=== PATIENT | female | born 1985 | race Native Hawaiian/Other Pacific Islander ===

== ENCOUNTER → 2020-11-04 08:08 | Outpatient (CLI) | payer OTHER, MEDICAID, SELFPAY ==
--- NOTE | 2020-11-04 08:09 | DI.US.S_ITS ---
PROCEDURE: US PELVIC COMPLETE INDICATIONS: intermittent L pelvic pain x years/verify IUD position TECHNIQUE: Real-time scanning was performed of the pelvic organs, with image documentation. Additional endovaginal scanning was necessary due to incomplete visualization of the adnexal and endometrial structures by transabdominal scanning. COMPARISON: None. FINDINGS: Uterus: Uterus is normal in size at 7.9 x 5.6 x 3.8 cm. The endometrium measures 2 mm in combined thickness. An IUD is seen at its expected location. Note is made of generalized increased vascularity of the uterus. Ovaries: The right ovary measures 3.5 x 2.5 x 2 cm. The left ovary measures 3 x 2.2 x 1.2 cm. The ovaries have a normal sonographic appearance. On the left, there is a complex lesion seen with heterogeneous debris with vascular nodules. That measures 4.1 x 3.1 x 2.1 cm. Other: A mild amount of free pelvic fluid is seen, which is likely within physiologic limits. IMPRESSION: The IUD is seen at its expected location. Complex lesion with vascular nodule seen involving the left adnexal region. Ectopic is possible in this patient with an IUD, yet considered to be less likely. Please correlate with beta HCG, if clinically appropriate. At clinical discretion, a followup pelvic ultrasound could be considered in 6 weeks to assure resolution/ improvement. Dictated by: Driss Garcia M.D. on 11/04/2020 at 9:23 Approved by: Driss Garcia M.D. on 11/04/2020 at 9:26
== END ==
PROVIDERS: PCP Registered Nurse Diabetes Educator; Referring Provider Registered Nurse Diabetes Educator; Visit Provider Registered Nurse Diabetes Educator
DX: R10.2 Pelvic and perineal pain (principal); T83.32XA Displacement of intrauterine contraceptive device, initial encounter; N94.89 Other specified conditions associated with female genital organs and menstrual cycle
CPT/HCPCS: 76830; 76856

== ENCOUNTER → 2020-11-05 14:45 | Outpatient (CLI) | payer OTHER, MEDICAID, SELFPAY ==
[2020-11-05 15:52] LABS: HCG Quantitative /Beta subunit < 2.4 mIU/mL
== END ==
PROVIDERS: PCP Registered Nurse Diabetes Educator; Referring Provider Registered Nurse Diabetes Educator; Visit Provider Registered Nurse Diabetes Educator
DX: R93.89 Abnormal findings on diagnostic imaging of other specified body structures (principal)
CPT/HCPCS: 36415; 84702

== ENCOUNTER → 2020-11-15 15:10 | Outpatient (CLI) | payer OTHER, MEDICAID, SELFPAY ==
[2020-11-15 17:36] LABS: Carcinoembryonic Antigen 5.1 ng/mL (0.1-3.0)
[2020-11-15 17:43] LABS: Cancer Antigen 125 < 5.5 U/mL (0-35)
[2020-11-16 05:42] LABS: Cancer (Carbohydrate) Ag 19-9 4 U/mL (0-35)
[2020-11-18 12:10] LABS: Human Epididymis Prot 4 47.9 pmol/L (0.0-61.2)
== END ==
PROVIDERS: PCP Registered Nurse Diabetes Educator; Referring Provider Obstetrics & Gynecology; Visit Provider Obstetrics & Gynecology
DX: N83.8 Other noninflammatory disorders of ovary, fallopian tube and broad ligament (principal)
CPT/HCPCS: 36415; 82378; 86301; 86304; 86305

== ENCOUNTER → 2020-11-29 09:15 | Outpatient (CLI) | payer OTHER, MEDICAID, SELFPAY ==
--- NOTE | 2020-11-29 10:19 | DI.CT.S_ITS ---
PROCEDURE: CT ABDOMEN PELVIS W CON INDICATIONS: elevated CEA, pain TECHNIQUE: After the administration of oral and intravenous contrast, 5 mm thick sections acquired from the diaphragm to the symphysis. 5 mm coronal and sagittal reformats were acquired. For radiation dose reduction, the following was used: automated exposure control, adjustment of mA and/or kV according to patient size. COMPARISON: [facility], US, US PELVIC COMPLETE, 11/04/2020, 8:25. FINDINGS: Image quality: Excellent. ABDOMEN: Lung bases: Lung bases are clear. Heart size is normal. Solid organs: Liver is normal in size and enhancement. Gallbladder is normal. Biliary system is non dilated. Pancreas enhances normally. Spleen is normal in size and enhancement. No adrenal nodules. Kidneys demonstrate normal size and enhancement, without hydronephrosis. Peritoneum and bowel: Bowel loops demonstrate normal wall thickness and caliber. No free fluid or air. Nodes and vessels: There is a 1 cm left para-aortic lymph node. Aorta and inferior vena cava are normal in size. Miscellaneous: No ventral hernias. PELVIS: Genitourinary: Uterus is normal in size. There is 1.3 cm enhancing nodular area involving the endometrium in the anterior fundal aspect of the uterus. A 2.3 x 3.1 cm cyst is seen in the left adnexa. Bladder wall thickness is normal. Miscellaneous: No inguinal hernias or adenopathy. Bones: There is a sclerotic nodule in the right iliac bone adjacent to the sacroiliac joint, probably a bone island. No vertebral body compression fractures. IMPRESSION: 1. A 2.3 x 3.1 cm cyst in the left adnexa. It is most likely arising from the left ovary. On the comparison ultrasound dated 11/04/2020, there is a complex cystic lesion with vascular nodule involving the left ovary. Malignant ovarian neoplasm needs to be excluded. Recommend gynecological consultation. 2. A 1.3 cm nodular area is seen in the anterior fundal aspect of the endometrium. No IUD is identified on the current exam. Pelvic ultrasound is suggested for follow-up. 3. There is a 1 cm left para-aortic lymph node, indeterminate in nature. Differential diagnosis include reactive lymph node versus tessie metastasis. Dictated by: Adi Markham M.D. on 11/29/2020 at 11:04 Approved by: Adi Markham M.D. on 11/29/2020 at 11:19
== END ==
PROVIDERS: PCP Registered Nurse Diabetes Educator; Referring Provider Obstetrics & Gynecology; Visit Provider Obstetrics & Gynecology
DX: N83.8 Other noninflammatory disorders of ovary, fallopian tube and broad ligament (principal)
CPT/HCPCS: 74177

== ENCOUNTER → 2021-01-15 14:45 | Outpatient (CLI) | payer OTHER, MEDICAID, SELFPAY ==
--- NOTE | 2021-01-15 | DI.US.S_ITS ---
PROCEDURE: US PELVIC COMPLETE INDICATIONS: ADNEXAL MASS TECHNIQUE: Real-time scanning was performed of the pelvic organs, with image documentation. Additional endovaginal scanning was necessary due to incomplete visualization of the adnexal and endometrial structures by transabdominal scanning. COMPARISON: [facility], CT, CT ABDOMEN PELVIS W CON, 11/29/2020, 10:28. [facility], US, US PELVIC COMPLETE, 11/04/2020, 8:25. FINDINGS: Uterus: Uterus is normal in size at 8.8 x 4.3 x 5.1 cm. The endometrium measures 6.5 mm in combined thickness. Ovaries: Left ovary measures 3.1 x 1.7 x 1.0 cm and the left 3.2 x 2.1 x 2.9 cm. Adjacent to the left ovary there is a paraovarian cyst again identified which appears similar prior examination measuring 4.2 x 2.5 x 2.6 cm. Small echogenic nodule present along the posterior wall as was seen on prior examination. Low level internal echoes are also noted within the fluid. Regressing physiologic cyst associated with the left ovary Other: No pathologic free abdominal or pelvic fluid. IMPRESSION: Complex left paraovarian cyst redemonstrated with mildly complex internal fluid and nodule along the posterior wall. Underlying neoplastic process cannot be excluded. If indicated, pre and post contrast gynecologic protocol MRI could be performed for further assessment. Dictated by: Victorino BLACKBURN Interpreted: Lj Padgett MD on 01/15/2021 at 15:51 Transcribed by: JESSICA on 01/15/2021 at 16:00 Approved by: Lj Padgett M.D. on 01/15/2021 at 16:01
== END ==
PROVIDERS: PCP Registered Nurse Diabetes Educator; Referring Provider Obstetrics & Gynecology; Visit Provider Obstetrics & Gynecology
DX: N94.89 Other specified conditions associated with female genital organs and menstrual cycle (principal); N83.292 Other ovarian cyst, left side
CPT/HCPCS: 76830; 76856

== ENCOUNTER → 2021-02-20 10:05 | Outpatient (CLI) | payer OTHER, MEDICAID, SELFPAY | PROVIDERS: PCP Registered Nurse Diabetes Educator; Referring Provider Obstetrics & Gynecology; Visit Provider Obstetrics & Gynecology | DX: Z34.90 Encounter for supervision of normal pregnancy, unspecified, unspecified trimester (principal) | CPT/HCPCS: 36415; 86900; 86901 ==

== ENCOUNTER → 2021-03-03 10:44 | Outpatient (CLI) | payer OTHER, MEDICAID, SELFPAY ==
--- NOTE | 2021-03-03 10:45 | DI.US.S_ITS ---
PROCEDURE: US PELVIC COMPLETE INDICATIONS: FOLLOW-UP LEFT ADNEXAL MASS TECHNIQUE: Real-time scanning was performed of the pelvic organs, with image documentation. Additional endovaginal scanning was necessary due to incomplete visualization of the adnexal and endometrial structures by transabdominal scanning. COMPARISON: [facility], US, US PELVIC COMPLETE, 01/15/2021, 14:05. FINDINGS: Uterus: Uterus is enlarged in size at 10.1 x 5.1 x 5.8 cm. The endometrium measures 16-17 mm in combined thickness. Endometrial fluid is present, technically nonspecific. No specific evidence of retained products of conception. There is hyperemic appearance of the myometrium. There is a prominent right parametrial vessel. Ovaries: Right ovary measures 2.1 x 1.5 x 2.4 cm and is unremarkable. The left ovary measures 6.4 x 2.6 cm and there is a complex cystic lesion measuring 4.1 x 1.8 x 3.1 cm, with multiple associated solid nodular/polyp components. Previously this measured 4.2 x 2.1 x 3.2 cm. Additional left ovarian solid hypervascular mass measuring 2.4 x 1.8 x 1.6 cm, previously 2.6 x 1.7 x 2.2 cm. Other: No pathologic free abdominal or pelvic fluid. IMPRESSION: No specific sonographic criteria for retained products of conception. Persistence appearance of complex cystic and solid lesions involving the left ovary as detailed above. Given the lack of interval resolution this is concerning for ovarian neoplasm, benign or malignant. Recommend gynecological protocol MRI, and further clinical workup. Consider correlation with CA 125 as necessary. Dictated by: Delvin Andrade M.D. on 03/03/2021 at 13:36 Approved by: Delvin Andrade M.D. on 03/03/2021 at 14:10
[2021-03-03 13:38] LABS: Cancer Antigen 125 19.3 U/mL (0-35); Carcinoembryonic Antigen 4.5 ng/mL (0.1-3.0)
== END ==
PROVIDERS: Obstetrics & Gynecology; PCP Registered Nurse Diabetes Educator; Referring Provider Obstetrics & Gynecology; Visit Provider Obstetrics & Gynecology
DX: N94.89 Other specified conditions associated with female genital organs and menstrual cycle (principal); N83.9 Noninflammatory disorder of ovary, fallopian tube and broad ligament, unspecified
CPT/HCPCS: 36415; 76830; 76856; 82378; 86304